=== PATIENT | female | born 2000 | race Caucasian/White ===

== ENCOUNTER 2023-03-13 03:33 | Emergency (ER) | payer SELFPAY ==
[2023-03-13] MEDS ORDERED: Cephalexin 500 MG Cap PO ONE (03:57)
[2023-03-13] MEDS ORDERED: Ibuprofen 600 MG Tab PO ONE (03:57)
[2023-03-13 04:35] LABS: CORONAVIRUS COVID-19 NAA NEGATIVE (NEGATIVE); INFLUENZA A NAA POSITIVE (NEGATIVE); INFLUENZA B NAA NEGATIVE (NEGATIVE)
== END 2023-03-13 04:10 | disposition other institution (70) ==
LOC: MW.ED 03:33
DX: J06.9 Acute upper respiratory infection, unspecified (principal); K04.7 Periapical abscess without sinus; J10.1 Influenza due to other identified influenza virus with other respiratory manifestations; Z20.822 Contact with and (suspected) exposure to COVID-19; F17.210 Nicotine dependence, cigarettes, uncomplicated; Z88.5 Allergy status to narcotic agent
CPT/HCPCS: 0240U; 99284; A9270